=== PATIENT | male | born 1950 | race Two or more races ===

== ENCOUNTER 2021-03-13 18:38 | Emergency (ER) | payer SELFPAY | END 2021-03-13 18:51 | disposition left against medical advice (07) | LOC: ER 18:38 | DX: Z53.21 Procedure and treatment not carried out due to patient leaving prior to being seen by health care provider (principal) ==

== ENCOUNTER 2023-06-23 12:12 | Inpatient (IN) | payer MEDICAID ==
[~2023-06-23] VITALS: Ht 175.3 cm; Wt 54.4 kg
[2023-06-23] VITALS (30 sets, daily range): BP systolic 99–129; BP diastolic 67–87; PULSE 72–108; RESP 14–24; TEMP 97.9–98.3
[2023-06-23] MEDS ORDERED: VANCOMYCIN 1G PREMIX 200 ML IV ONE (12:30)
[2023-06-23] MEDS ORDERED: DILTIAZEM HCL 5MG/ML 5ML VIAL IV ONE (12:30)
[2023-06-23] MEDS ORDERED: PIPERACILLIN/TAZ 3.375G PREMIX 50 ML IV ONE (12:30)
[2023-06-23] MEDS ORDERED: LEVETIRACETAM 500MG PREMIX 100 ML IV ONE (12:30)
[2023-06-23] MEDS ORDERED: SODIUM CHLORIDE 0.9% 1000ML BAG (SEPSIS BOLUS) IV ONE (12:30)
[2023-06-23] MEDS ORDERED: LORAZEPAM 2MG/ML CPJ IV ONE (12:30)
[2023-06-23] MEDS ORDERED: LORAZEPAM 4MG/ML VIAL IV SCH (12:45)
[2023-06-23 12:49] LABS: BASOPHILS % 0.3 % (0.0-2.0); DIFFERENTIAL COMMENT 0; EOSINOPHILS % 0.9 % (0.0-5.0); HEMATOCRIT. 38.8 % (42.0-52.0); HEMOGLOBIN. 12.5 g/dL (14.0-18.0); LYMPHOCYTES % 17.9 % (20.0-50.0); MEAN CORPUSCULAR HGB CONC 32.1 g/dL (31.0-37.0); MEAN CORPUSCULAR VOLUME 99.4 fL (80.0-94.0); MEAN PLATELET VOLUME 7.2 fl (7.4-10.4); MONOCYTES % 9.3 % (2.0-8.0); NEUTROPHILS % 71.6 % (40.0-76.0); PLATELET 328 x1000/uL (130-400); RED CELL DISTRIBUTION WIDTH 14.5 % (11.6-14.6); WHITE BLOOD COUNT 17.7 x1000/uL (4.5-11.0)
[2023-06-23 12:57] LABS: AMMONIA 25 uMol/L (<32)
[2023-06-23 12:58] LABS: PARTIAL THROMBOPLASTIN TIME 23.1 sec (23.4-31.0); PROTHROMBIN TIME 11.2 sec (9.6-11.0)
[2023-06-23] MEDS ORDERED: MIDAZOLAM 100MG/100ML PMX 100 ML IV PRN (13:00)
[2023-06-23] MEDS ORDERED: FENTANYL 2500MCG/250ML PMX 250 ML IV ONE (13:00)
[2023-06-23 13:10] LABS: ALANINE AMINOTRANSFERASE 19 IU/L (10-49); ALBUMIN 3.9 g/dL (3.2-4.8); ASPARTATE AMINOTRANSFERASE 47 IU/L (<34); BILIRUBIN TOTAL 1.2 mg/dL (0.1-1.0); CALCIUM 11.8 mg/dL (8.7-10.4); CARBON DIOXIDE 31 mEq/L (21-32); CHLORIDE 97 mEq/L (98-107); CREATININE 0.9 mg/dL (0.6-1.3); GLUCOSE 164 mg/dL (70-105); POTASSIUM 4.4 mEq/L (3.5-5.1); PROTEIN TOTAL 7.2 g/dL (6.0-8.3); SODIUM 140 mEq/L (136-145); THYROID STIMULATING HORMONE 2.06 uIU/mL (0.55-4.78); UREA NITROGEN BLOOD 23 mg/dL (9-23)
[2023-06-23 13:12] LABS: LACTIC ACID 6.5 mmol/L (0.4-2.0)
[2023-06-23] MEDS ORDERED: FENTANYL CITRATE 2,500 MCG in SODIUM CHLORIDE 0.9% 200 ML IV PRN (13:15)
[2023-06-23 13:22] LABS: TROPONIN I HIGH SENSITIVITY 61 ng/L (3.0-53)
[2023-06-23] MEDS ORDERED: MIDAZOLAM HCL 100 MG in SODIUM CHLORIDE 0.9% 100 ML IV PRN (13:30)
[2023-06-23 14:20] LABS: CLARITY URINE CLEAR (CLEAR); COLOR URINE YELLOW (YELLOW); GLUCOSE URINE NEGATIVE (NEGATIVE); KETONES URINE TRACE (NEGATIVE); PH URINE 5.5 (4.5-8.0); PROTEIN URINE NEGATIVE (NEGATIVE); SPECIFIC GRAVITY URINE 1.025 (1.005-1.030)
[2023-06-23 14:21] LABS: LEUKOCYTE ESTERASE URINE NEGATIVE (NEGATIVE); NITRITE URINE NEGATIVE (NEGATIVE); OCCULT BLOOD URINE NEGATIVE (NEGATIVE); UROBILINOGEN URINE 0.2 E.U./dL (0.2-1.0)
[2023-06-23 14:37] LABS: BG BASE EXCESS 4.8 mmol/L (-2.0-2.0); BG CARBOXYHEMOGLOBIN 0.1 % (0.5-1.5); BG DEOXYHEMOGLOBIN 0.5 % (0.0-5.0); BG FRACTION INSPIRED OXYGEN 100; BG HCO3 ACT 30.2 mmol/L (22.0-26.0); BG METHEMOGLOBIN 0.3 % (0.0-1.5); BG OXYGEN SATURATION 99.5 % (92.0-98.5); BG OXYHEMOGLOBIN 99.1 % (94.0-97.0); BG PCO2 48.4 mmHg (35.0-45.0); BG PH 7.413 (7.350-7.450); BG PO2 406.2 mmHg (75.0-100.0); BG SAMPLE SITE RIGHT RADIAL; BG TOTAL HEMOGLOBIN 12.1 g/dL (12.0-18.0); BG TOTAL RESPIRATORY RATE 14 b/min; BG VENT MODE VENT - AC
[2023-06-23] MEDS ORDERED: MAGNESIUM 1 G PREMIX 100 ML IV ONE (15:00)
[2023-06-23] MEDS ORDERED: NOREPINEPHRINE 8MG/250ML PMX 250 ML IV ONE (15:00)
[2023-06-23] MEDS ORDERED: NOREPINEPHRINE 8MG/250ML PMX 250 ML IV NR (15:15)
[2023-06-23] MEDS ORDERED: DEXT 5%/0.45% NACL 1000ML 1,000 ML IV SCH (17:30)
[2023-06-23 17:35] LABS: TROPONIN I HIGH SENSITIVITY 64 ng/L (3.0-53)
[2023-06-23] MEDS ORDERED: LEVETIRACETAM 500 MG in SODIUM CHLORIDE 0.9% 100 ML IV ONE (17:45)
[2023-06-23] MEDS ORDERED: MAGNESIUM 2 G PREMIX 50 ML IV NR (18:00)
[2023-06-23] MEDS ORDERED: NOREPINEPHRINE 8MG/250ML PMX 250 ML IV PRN (18:00)
[2023-06-23] MEDS ORDERED: LEVETIRACETAM 500MG PREMIX 100 ML IV NR (18:00)
[2023-06-23] MEDS ORDERED: PIPERACILLIN/TAZ 3.375G PREMIX 50 ML IV SCH (18:15)
[2023-06-23] MEDS: METHYLPREDNISOLONE SOD SUCC 40MG/ML (ACT-O-VIAL) IV SCH (19:26)
[2023-06-23] MEDS: PANTOPRAZOLE SODIUM 40 MG/VIAL IV SCH (19:26)
[2023-06-23] MEDS ORDERED: DOCUSATE SODIUM 100MG CAPSULE PO PRN (20:30)
[2023-06-23] MEDS ORDERED: MAGNESIUM/ALUMINUM HYDROXIDE/SIMETHICONE 30ML UDC PO PRN (20:30)
[2023-06-23] MEDS ORDERED: CLONIDINE 0.1MG TABLET PO PRN (20:30)
[2023-06-23] MEDS ORDERED: ACETAMINOPHEN 325MG TABLET PO PRN ×2 (20:30)
[2023-06-23] MEDS: IPRATROPIUM/ALBUTEROL 0.5-3(2.5)MG/3ML NEB HHN SCH (20:35)
[2023-06-23] MEDS ORDERED: ENOXAPARIN 40MG/0.4ML SYR SUBCUT SCH (21:00)
[2023-06-23] MEDS: PROPOFOL 10MG/ML 100ML 100 ML IV PRN (21:03)
[2023-06-23] MEDS ORDERED: DEXTROSE 50% WATER 50ML SYRINGE IV PRN (21:45)
[2023-06-23] MEDS ORDERED: PIPERACILLIN/TAZOBACTAM 3.375 G in DEXTROSE 5% WATER 50 ML IV SCH (22:00)
[2023-06-23] MEDS: PIPERACILLIN/TAZOBACTAM 3.375 G in DEXTROSE 5% WATER 50 ML IV SCH (22:47)
[2023-06-23] MEDS: DEXT 5%/0.9% NACL 1,000 ML IV SCH (22:47)
[2023-06-24] VITALS (106 sets, daily range): BP systolic 81–139; BP diastolic 54–80; PULSE 67–112; RESP 17–28; TEMP 98–98.5
[2023-06-24] MEDS: METHYLPREDNISOLONE SOD SUCC 40MG/ML (ACT-O-VIAL) IV SCH ×4 (00:30→17:36)
[2023-06-24] MEDS: IPRATROPIUM/ALBUTEROL 0.5-3(2.5)MG/3ML NEB HHN SCH ×4 (01:35→20:40)
[2023-06-24 01:45] LABS: AMMONIA < 10 uMol/L (<32)
[2023-06-24 01:46] LABS: CREATINE KINASE MB FRACTION 1.7 ng/mL (0.5-3.6)
[2023-06-24 05:27] LABS: HEMATOCRIT. 32.2 % (42.0-52.0); HEMOGLOBIN. 10.5 g/dL (14.0-18.0); MEAN CORPUSCULAR HEMOGLOBIN 32.3 pg (28.0-32.0); MEAN CORPUSCULAR HGB CONC 32.6 g/dL (31.0-37.0); MEAN CORPUSCULAR VOLUME 99.2 fL (80.0-94.0); MEAN PLATELET VOLUME 7.4 fl (7.4-10.4); PLATELET 215 x1000/uL (130-400); RED BLOOD CELL COUNT 3.25 mill/uL (4.7-6.1); RED CELL DISTRIBUTION WIDTH 14.5 % (11.6-14.6); WHITE BLOOD COUNT 8.4 x1000/uL (4.5-11.0)
[2023-06-24 05:49] LABS: CREATINE KINASE MB FRACTION 1.4 ng/mL (0.5-3.6)
[2023-06-24 05:52] LABS: ALANINE AMINOTRANSFERASE 15 IU/L (10-49); ALBUMIN 3.3 g/dL (3.2-4.8); ASPARTATE AMINOTRANSFERASE 33 IU/L (<34); BILIRUBIN TOTAL 0.7 mg/dL (0.1-1.0); CALCIUM 10.5 mg/dL (8.7-10.4); CARBON DIOXIDE 28 mEq/L (21-32); CHLORIDE 102 mEq/L (98-107); CHOLESTEROL 201 mg/dL (<200); CREATININE 0.9 mg/dL (0.6-1.3); GLUCOSE 204 mg/dL (70-105); HDL CHOLESTEROL 43 mg/dL (>55); LDL CHOLESTEROL 140 mg/dL (5-100); POTASSIUM 3.8 mEq/L (3.5-5.1); PROTEIN TOTAL 6.1 g/dL (6.0-8.3); SODIUM 139 mEq/L (136-145); T4 FREE 1.12 ng/dL (0.89-1.76); TRIGLYCERIDE 160 mg/dL (0-150); UREA NITROGEN BLOOD 23 mg/dL (9-23)
[2023-06-24] MEDS ORDERED: LEVETIRACETAM 500MG PREMIX 100 ML IV SCH (06:00)
[2023-06-24] MEDS: BLOOD SUGAR DIAGNOSTIC STRIP TEST SCH ×4 (06:56→21:19)
[2023-06-24 06:59] LABS: DIFFERENTIAL COMMENT 1
[2023-06-24] MEDS: PIPERACILLIN/TAZOBACTAM 3.375 G in DEXTROSE 5% WATER 50 ML IV SCH (06:59)
[2023-06-24] MEDS: INSULIN LISPRO 100 UNITS/ML SUBCUT SCH ×4 (07:00→21:54)
[2023-06-24 07:54] LABS: BG BASE EXCESS 1.2 mmol/L (-2.0-2.0); BG CARBOXYHEMOGLOBIN 0.3 % (0.5-1.5); BG DEOXYHEMOGLOBIN 1.2 % (0.0-5.0); BG HCO3 ACT 25.6 mmol/L (22.0-26.0); BG METHEMOGLOBIN 0.2 % (0.0-1.5); BG OXYGEN SATURATION 98.8 % (92.0-98.5); BG OXYHEMOGLOBIN 98.3 % (94.0-97.0); BG PCO2 39.3 mmHg (35.0-45.0); BG PH 7.431 (7.350-7.450); BG SAMPLE SITE RIGHT RADIAL; BG TOTAL HEMOGLOBIN 10.3 g/dL (12.0-18.0); BG VENT MODE VENT - AC
[2023-06-24] MEDS ORDERED: VANCOMYCIN 750MG PMX (XELLIA) 150 ML IV SCH (09:00)
[2023-06-24] MEDS: LEVETIRACETAM 500MG PREMIX 100 ML IV SCH ×2 (09:21→21:06)
[2023-06-24] MEDS: PANTOPRAZOLE SODIUM 40 MG/VIAL IV SCH (09:21)
[2023-06-24] MEDS: ENOXAPARIN 60MG/0.6ML SYR SUBCUT SCH ×2 (09:22→21:06)
[2023-06-24] MEDS: DEXT 5%/0.9% NACL 1,000 ML IV SCH (09:23)
[2023-06-24] MEDS: VANCOMYCIN 500MG PREMIX 100 ML IV SCH ×2 (09:57→21:06)
[2023-06-24] MEDS ORDERED: NOREPINEPHRINE 8MG/250ML PMX 250 ML IV PRN (14:00)
[2023-06-24] MEDS: PIPERACILLIN/TAZOBACTAM 3.375G in DEXT 5% WATER 50ML IV SCH ×2 (14:19→21:54)
[2023-06-24 14:28] LABS: CREATINE KINASE MB FRACTION 0.9 ng/mL (0.5-3.6)
[2023-06-24 17:05] LABS: PLATELET ESTIMATE NORMAL
[2023-06-24] MEDS ORDERED: PROPOFOL 10MG/ML 100ML 100 ML IV PRN ×2 (18:15→21:15)
[2023-06-24] MEDS: PROPOFOL 10MG/ML 100ML 100 ML IV PRN (20:00)
[2023-06-25] VITALS (85 sets, daily range): BP systolic 86–115; BP diastolic 49–91; PULSE 74–105; RESP 12–28; TEMP 97.5–98.5
[2023-06-25] MEDS: METHYLPREDNISOLONE SOD SUCC 40MG/ML (ACT-O-VIAL) IV SCH ×4 (00:02→18:01)
[2023-06-25] MEDS: IPRATROPIUM/ALBUTEROL 0.5-3(2.5)MG/3ML NEB HHN SCH ×4 (01:44→20:21)
[2023-06-25] MEDS: DEXT 5%/0.9% NACL 1,000 ML IV SCH ×2 (02:53→21:40)
[2023-06-25 04:47] LABS: HEMATOCRIT 29.1 % (42.0-52.0); HEMOGLOBIN 9.5 g/dL (14.0-18.0); MEAN CORPUSCULAR HEMOGLOBIN 32.5 pg (28.0-32.0); MEAN CORPUSCULAR HGB CONC 32.7 g/dL (31.0-37.0); MEAN CORPUSCULAR VOLUME 99.5 fL (80.0-94.0); PLATELET 221 x1000/uL (130-400); RED BLOOD CELL COUNT 2.92 mill/uL (4.7-6.1); RED CELL DISTRIBUTION WIDTH 14.7 % (11.6-14.6); WHITE BLOOD COUNT 8.2 x1000/uL (4.5-11.0)
[2023-06-25 04:59] LABS: CALCIUM 10.1 mg/dL (8.7-10.4); CREATININE 1.2 mg/dL (0.6-1.3); POTASSIUM 3.1 mEq/L (3.5-5.1)
[2023-06-25] MEDS: BLOOD SUGAR DIAGNOSTIC STRIP TEST SCH ×4 (06:20→21:38)
[2023-06-25] MEDS: INSULIN LISPRO 100 UNITS/ML SUBCUT SCH ×4 (06:24→21:40)
[2023-06-25] MEDS: PIPERACILLIN/TAZOBACTAM 3.375G in DEXT 5% WATER 50ML IV SCH ×3 (06:24→21:40)
[2023-06-25] MEDS ORDERED: POTASSIUM CHLORIDE INJ 40 MEQ in DEXT 5% WATER 250 ML IV ONE (07:15)
[2023-06-25 07:54] LABS: BG BASE EXCESS 4.5 mmol/L (-2.0-2.0); BG CARBOXYHEMOGLOBIN 0.2 % (0.5-1.5); BG DEOXYHEMOGLOBIN 1.4 % (0.0-5.0); BG FRACTION INSPIRED OXYGEN 40; BG HCO3 ACT 28.8 mmol/L (22.0-26.0); BG METHEMOGLOBIN 0.2 % (0.0-1.5); BG OXYGEN SATURATION 98.6 % (92.0-98.5); BG OXYHEMOGLOBIN 98.2 % (94.0-97.0); BG PCO2 41.9 mmHg (35.0-45.0); BG PH 7.455 (7.350-7.450); BG PO2 160.6 mmHg (75.0-100.0); BG SAMPLE SITE RIGHT BRACHIAL; BG TOTAL HEMOGLOBIN 10.4 g/dL (12.0-18.0); BG VENT MODE VENT - AC
[2023-06-25] MEDS ORDERED: MAGNESIUM 2 G PREMIX 50 ML IV NR (09:00)
[2023-06-25] MEDS: LEVETIRACETAM 500MG PREMIX 100 ML IV SCH ×2 (11:14→21:05)
[2023-06-25] MEDS: PANTOPRAZOLE SODIUM 40 MG/VIAL IV SCH (11:14)
[2023-06-25] MEDS: KCL 20MEQ/100ML X 2 FOR TOTAL KCL 40MEQ/200ML IV SCH ×2 (11:14→14:52)
[2023-06-25] MEDS: ENOXAPARIN 60MG/0.6ML SYR SUBCUT SCH ×2 (11:16→21:06)
[2023-06-25 11:20] LABS: CREATINE KINASE 95 IU/L (46-171)
[2023-06-25] MEDS ORDERED: KCL 20MEQ/100ML PREMIX 100 ML IV NR (14:47)
[2023-06-25] MEDS ORDERED: VANCOMYCIN 750MG PREMIX 150 ML IV SCH (21:00)
[2023-06-26] VITALS (65 sets, daily range): BP systolic 82–119; BP diastolic 54–90; PULSE 73–113; RESP 2–36; TEMP 97–98.5; O2SAT 99
[2023-06-26] MEDS: METHYLPREDNISOLONE SOD SUCC 40MG/ML (ACT-O-VIAL) IV SCH ×3 (00:19→12:39)
[2023-06-26] MEDS: IPRATROPIUM/ALBUTEROL 0.5-3(2.5)MG/3ML NEB HHN SCH ×4 (02:21→20:03)
[2023-06-26 05:43] LABS: HEMATOCRIT 30.3 % (42.0-52.0); HEMOGLOBIN 9.9 g/dL (14.0-18.0); MEAN CORPUSCULAR HGB CONC 32.7 g/dL (31.0-37.0); MEAN CORPUSCULAR VOLUME 100.9 fL (80.0-94.0); PLATELET 228 x1000/uL (130-400); RED CELL DISTRIBUTION WIDTH 14.9 % (11.6-14.6); WHITE BLOOD COUNT 8.7 x1000/uL (4.5-11.0)
[2023-06-26 06:00] LABS: CALCIUM 10.2 mg/dL (8.7-10.4); CARBON DIOXIDE 29 mEq/L (21-32); CHLORIDE 106 mEq/L (98-107); CREATININE 1.1 mg/dL (0.6-1.3); GLUCOSE 174 mg/dL (70-105); POTASSIUM 3.3 mEq/L (3.5-5.1); SODIUM 144 mEq/L (136-145); UREA NITROGEN BLOOD 26 mg/dL (9-23)
[2023-06-26] MEDS: BLOOD SUGAR DIAGNOSTIC STRIP TEST SCH ×4 (06:09→21:53)
[2023-06-26] MEDS: PIPERACILLIN/TAZOBACTAM 3.375G in DEXT 5% WATER 50ML IV SCH ×3 (06:12→21:49)
[2023-06-26] MEDS: INSULIN LISPRO 100 UNITS/ML SUBCUT SCH ×3 (06:14→21:53)
[2023-06-26] MEDS ORDERED: POTASSIUM CHLORIDE 20MEQ/PACKET PO NR (08:00)
[2023-06-26] MEDS: PANTOPRAZOLE SODIUM 40 MG/VIAL IV SCH (08:24)
[2023-06-26] MEDS: LEVETIRACETAM 500MG PREMIX 100 ML IV SCH ×2 (08:25→21:48)
[2023-06-26] MEDS: ENOXAPARIN 60MG/0.6ML SYR SUBCUT SCH ×2 (08:26→21:48)
[2023-06-26 09:20] LABS: BG BASE EXCESS -0.3 mmol/L (-2.0-2.0); BG CARBOXYHEMOGLOBIN 0.2 % (0.5-1.5); BG DEOXYHEMOGLOBIN 2.4 % (0.0-5.0); BG HCO3 ACT 25.7 mmol/L (22.0-26.0); BG METHEMOGLOBIN 0.3 % (0.0-1.5); BG OXYGEN SATURATION 97.6 % (92.0-98.5); BG OXYHEMOGLOBIN 97.1 % (94.0-97.0); BG PH 7.347 (7.350-7.450); BG PO2 111.1 mmHg (75.0-100.0); BG SAMPLE SITE RIGHT BRACHIAL; BG TOTAL HEMOGLOBIN 12.1 g/dL (12.0-18.0); BG VENT MODE VENT - CPAP
[2023-06-26] MEDS: DEXT 5%/0.9% NACL 1,000 ML IV SCH (14:55)
[2023-06-27] VITALS (77 sets, daily range): BP systolic 95–184; BP diastolic 65–134; PULSE 72–159; RESP 14–40; TEMP 97.5–99.1; O2SAT 94–99
[2023-06-27] MEDS: METHYLPREDNISOLONE SOD SUCC 40MG/ML (ACT-O-VIAL) IV SCH ×5 (00:33→23:16)
[2023-06-27] MEDS: IPRATROPIUM/ALBUTEROL 0.5-3(2.5)MG/3ML NEB HHN SCH ×4 (04:24→20:22)
[2023-06-27 05:45] LABS: HEMATOCRIT. 29.8 % (42.0-52.0); HEMOGLOBIN. 9.7 g/dL (14.0-18.0); MEAN CORPUSCULAR HEMOGLOBIN 33.1 pg (28.0-32.0); MEAN CORPUSCULAR HGB CONC 32.6 g/dL (31.0-37.0); MEAN CORPUSCULAR VOLUME 101.5 fL (80.0-94.0); MEAN PLATELET VOLUME 7.5 fl (7.4-10.4); PLATELET 227 x1000/uL (130-400); RED BLOOD CELL COUNT 2.93 mill/uL (4.7-6.1); RED CELL DISTRIBUTION WIDTH 15.5 % (11.6-14.6); WHITE BLOOD COUNT 9.3 x1000/uL (4.5-11.0)
[2023-06-27] MEDS: BLOOD SUGAR DIAGNOSTIC STRIP TEST SCH ×4 (06:01→21:00)
[2023-06-27] MEDS: PIPERACILLIN/TAZOBACTAM 3.375G in DEXT 5% WATER 50ML IV SCH ×3 (06:03→23:16)
[2023-06-27 06:04] LABS: CARBON DIOXIDE 27 mEq/L (21-32); CHLORIDE 111 mEq/L (98-107); CREATININE 0.9 mg/dL (0.6-1.3); GLUCOSE 150 mg/dL (70-105); PHOSPHORUS 2.1 mg/dL (2.5-4.9); SODIUM 147 mEq/L (136-145); UREA NITROGEN BLOOD 32 mg/dL (9-23)
[2023-06-27 06:08] LABS: DIFFERENTIAL COMMENT 1
[2023-06-27] MEDS: INSULIN LISPRO 100 UNITS/ML SUBCUT SCH ×3 (07:00→18:27)
[2023-06-27] MEDS ORDERED: DEXTROSE 5% WATER 1,000 ML IV SCH (07:45)
[2023-06-27] MEDS: ENOXAPARIN 60MG/0.6ML SYR SUBCUT SCH ×2 (08:33→21:18)
[2023-06-27] MEDS: LEVETIRACETAM 500MG PREMIX 100 ML IV SCH ×2 (08:33→21:18)
[2023-06-27] MEDS: PANTOPRAZOLE SODIUM 40 MG/VIAL IV SCH (08:34)
[2023-06-27 08:39] LABS: BG BASE EXCESS -0.8 mmol/L (-2.0-2.0); BG CARBOXYHEMOGLOBIN 0.3 % (0.5-1.5); BG DEOXYHEMOGLOBIN 4.7 % (0.0-5.0); BG FRACTION INSPIRED OXYGEN 32; BG HCO3 ACT 24.2 mmol/L (22.0-26.0); BG METHEMOGLOBIN 0.2 % (0.0-1.5); BG OXYGEN SATURATION 95.3 % (92.0-98.5); BG OXYHEMOGLOBIN 94.8 % (94.0-97.0); BG PCO2 41.4 mmHg (35.0-45.0); BG PH 7.385 (7.350-7.450); BG PO2 80.7 mmHg (75.0-100.0); BG SAMPLE SITE RIGHT BRACHIAL; BG TOTAL HEMOGLOBIN 10.8 g/dL (12.0-18.0); BG VENT MODE NASAL CANNULA
[2023-06-27] MEDS: GUAIFENESIN 200MG/10ML SUGAR FREE UDC PO PRN ×2 (10:29→22:03)
[2023-06-27] MEDS ORDERED: DILTIAZEM HCL 5MG/ML 5ML VIAL IV NR (11:15)
[2023-06-27] MEDS ORDERED: DILTIAZEM HCL 30MG TABLET PO PRN (11:15)
[2023-06-27] MEDS ORDERED: IPRATROPIUM BROMIDE (0.02%) 0.5MG/2.5ML NEB HHN SCH (11:15)
[2023-06-27] MEDS ORDERED: IPRATROPIUM/ALBUTEROL 0.5-3(2.5)MG/3ML NEB HHN SCH (12:00)
[2023-06-27] MEDS ORDERED: DILTIAZEM HCL 5MG/ML 5ML VIAL IV PRN (14:15)
[2023-06-27] MEDS ORDERED: DILTIAZEM HCL 125 MG in DEXT 5% WATER 100 ML IV PRN (15:15)
[2023-06-27 15:22] LABS: BG BASE EXCESS -0.9 mmol/L (-2.0-2.0); BG CARBOXYHEMOGLOBIN 0.3 % (0.5-1.5); BG DEOXYHEMOGLOBIN 0.3 % (0.0-5.0); BG FRACTION INSPIRED OXYGEN 100; BG HCO3 ACT 25.3 mmol/L (22.0-26.0); BG METHEMOGLOBIN 0.1 % (0.0-1.5); BG OXYGEN SATURATION 99.7 % (92.0-98.5); BG OXYHEMOGLOBIN 99.3 % (94.0-97.0); BG PCO2 48.5 mmHg (35.0-45.0); BG PH 7.336 (7.350-7.450); BG PO2 233.7 mmHg (75.0-100.0); BG SAMPLE SITE RIGHT BRACHIAL; BG TOTAL HEMOGLOBIN 11.7 g/dL (12.0-18.0); BG VENT MODE MASK - NRB
[2023-06-27] MEDS: AMIODARONE HCL 200 MG TABLET PO SCH ×2 (15:43→21:18)
[2023-06-27] MEDS ORDERED: IPRATROPIUM/ALBUTEROL 0.5-3(2.5)MG/3ML NEB HHN PRN (17:15)
[2023-06-27] MEDS: AMIODARONE HCL 900 MG in DEXT 5% WATER 482 ML IV PRN (18:26)
[2023-06-27] MEDS: METOPROLOL TARTRATE 25MG TABLET PO SCH (21:19)
[2023-06-28] VITALS (82 sets, daily range): BP systolic 114–174; BP diastolic 52–120; PULSE 69–111; RESP 11–34; TEMP 97.6–98.4; O2SAT 96–99
[2023-06-28] MEDS: INSULIN LISPRO 100 UNITS/ML SUBCUT SCH ×5 (00:19→23:47)
[2023-06-28 01:47] LABS: BG BASE EXCESS -2.6 mmol/L (-2.0-2.0); BG CARBOXYHEMOGLOBIN 0.3 % (0.5-1.5); BG DEOXYHEMOGLOBIN 0.8 % (0.0-5.0); BG FRACTION INSPIRED OXYGEN 100; BG HCO3 ACT 24.8 mmol/L (22.0-26.0); BG METHEMOGLOBIN 0.3 % (0.0-1.5); BG OXYGEN SATURATION 99.2 % (92.0-98.5); BG OXYHEMOGLOBIN 98.6 % (94.0-97.0); BG PCO2 55.2 mmHg (35.0-45.0); BG PH 7.271 (7.350-7.450); BG SAMPLE SITE RIGHT BRACHIAL; BG TOTAL HEMOGLOBIN 11.5 g/dL (12.0-18.0); BG VENT MODE MASK - NRB
[2023-06-28] MEDS: IPRATROPIUM/ALBUTEROL 0.5-3(2.5)MG/3ML NEB HHN SCH ×4 (01:56→21:12)
[2023-06-28 04:44] LABS: HEMATOCRIT. 34.5 % (42.0-52.0); HEMOGLOBIN. 10.7 g/dL (14.0-18.0); MEAN CORPUSCULAR HEMOGLOBIN 32.1 pg (28.0-32.0); MEAN CORPUSCULAR HGB CONC 31.1 g/dL (31.0-37.0); MEAN CORPUSCULAR VOLUME 103.4 fL (80.0-94.0); RED BLOOD CELL COUNT 3.34 mill/uL (4.7-6.1); RED CELL DISTRIBUTION WIDTH 16.1 % (11.6-14.6); WHITE BLOOD COUNT 17.3 x1000/uL (4.5-11.0)
[2023-06-28 05:06] LABS: CARBON DIOXIDE 24 mEq/L (21-32); CHLORIDE 109 mEq/L (98-107); GLUCOSE 201 mg/dL (70-105); POTASSIUM 4.5 mEq/L (3.5-5.1); SODIUM 144 mEq/L (136-145); UREA NITROGEN BLOOD 32 mg/dL (9-23)
[2023-06-28] MEDS: METHYLPREDNISOLONE SOD SUCC 40MG/ML (ACT-O-VIAL) IV SCH ×4 (05:10→23:38)
[2023-06-28] MEDS: PIPERACILLIN/TAZOBACTAM 3.375G in DEXT 5% WATER 50ML IV SCH ×3 (05:10→21:36)
[2023-06-28 06:08] LABS: DIFFERENTIAL COMMENT 1
[2023-06-28 06:44] LABS: PLATELET ESTIMATE NORMAL
[2023-06-28] MEDS: BLOOD SUGAR DIAGNOSTIC STRIP TEST SCH ×4 (07:08→23:39)
[2023-06-28 08:21] LABS: PLATELET 261 x1000/uL (130-400)
[2023-06-28 08:22] LABS: MEAN PLATELET VOLUME 8.3 fl (7.4-10.4)
[2023-06-28 08:23] LABS: BG BASE EXCESS -1.5 mmol/L (-2.0-2.0); BG CARBOXYHEMOGLOBIN 0.1 % (0.5-1.5); BG HCO3 ACT 26.8 mmol/L (22.0-26.0); BG METHEMOGLOBIN 0.3 % (0.0-1.5); BG OXYHEMOGLOBIN 96.6 % (94.0-97.0); BG PCO2 62.9 mmHg (35.0-45.0); BG PH 7.247 (7.350-7.450); BG PO2 106.2 mmHg (75.0-100.0); BG SAMPLE SITE RIGHT BRACHIAL; BG TOTAL HEMOGLOBIN 11.7 g/dL (12.0-18.0); BG VENT MODE VAPOTHERM
[2023-06-28 08:28] LABS: NUCLEATED RED BLOOD CELLS 3 /100 WBC
[2023-06-28 08:29] LABS: PLATELET ESTIMATE NORMAL
[2023-06-28] MEDS: ENOXAPARIN 60MG/0.6ML SYR SUBCUT SCH ×3 (08:37→21:37)
[2023-06-28] MEDS: LEVETIRACETAM 500MG PREMIX 100 ML IV SCH ×3 (08:37→21:36)
[2023-06-28] MEDS: AMIODARONE HCL 200 MG TABLET PO SCH ×3 (08:38→21:36)
[2023-06-28] MEDS: METOPROLOL TARTRATE 25MG TABLET PO SCH ×3 (08:38→21:37)
[2023-06-28] MEDS: PANTOPRAZOLE SODIUM 40 MG/VIAL IV SCH (08:39)
[2023-06-28] MEDS: AMIODARONE HCL 900 MG in DEXT 5% WATER 482 ML IV PRN (17:02)
[2023-06-29] VITALS (12 sets, daily range): BP systolic 90–156; BP diastolic 54–88; PULSE 86–104; RESP 12–34; TEMP 97.3–98.8
[2023-06-29] MEDS: METHYLPREDNISOLONE SOD SUCC 40MG/ML (ACT-O-VIAL) IV SCH (04:59)
[2023-06-29] MEDS: BLOOD SUGAR DIAGNOSTIC STRIP TEST SCH (05:00)
[2023-06-29] MEDS: INSULIN LISPRO 100 UNITS/ML SUBCUT SCH (05:18)
[2023-06-29 07:26] LABS: HEMATOCRIT 33.1 % (42.0-52.0); HEMOGLOBIN 10.9 g/dL (14.0-18.0); MEAN CORPUSCULAR HEMOGLOBIN 33.2 pg (28.0-32.0); MEAN CORPUSCULAR VOLUME 100.6 fL (80.0-94.0); PLATELET 250 x1000/uL (130-400); RED BLOOD CELL COUNT 3.29 mill/uL (4.7-6.1); RED CELL DISTRIBUTION WIDTH 15.4 % (11.6-14.6); WHITE BLOOD COUNT 15.5 x1000/uL (4.5-11.0)
[2023-06-29] MEDS ORDERED: MORPHINE SULFATE 250 MG in DEXT 5% WATER 225 ML IV PRN (08:00)
[2023-06-29 08:15] LABS: ALANINE AMINOTRANSFERASE 737 IU/L (10-49); ALBUMIN 3.4 g/dL (3.2-4.8); ASPARTATE AMINOTRANSFERASE 1045 IU/L (<34); BILIRUBIN TOTAL 0.7 mg/dL (0.1-1.0); CALCIUM 9.5 mg/dL (8.7-10.4); CARBON DIOXIDE 25 mEq/L (21-32); CHLORIDE 108 mEq/L (98-107); CREATININE 1.1 mg/dL (0.6-1.3); GLUCOSE 123 mg/dL (70-105); POTASSIUM 4.6 mEq/L (3.5-5.1); PROTEIN TOTAL 6.2 g/dL (6.0-8.3); SODIUM 144 mEq/L (136-145); UREA NITROGEN BLOOD 54 mg/dL (9-23)
[2023-06-29] MEDS ORDERED: SCOPOLAMINE HYDROBROMIDE PATCH 72HR TD SCH (09:00)
[2023-06-29] MEDS: LEVETIRACETAM 500MG PREMIX 100 ML IV SCH ×2 (09:00→20:54)
[2023-06-29] MEDS ORDERED: LORAZEPAM 4MG/ML VIAL IV PRN (10:00)
== END 2023-06-30 01:30 | DRG 720 ==
LOC: ER 12:12 → MICUSO 17:03 → EDBEDREQ 17:08 → 5EST 06-28 22:34
PROVIDERS: ADMIT Internal Medicine; ATTEND Internal Medicine
PROC: 0BH17EZ Insertion of Endotracheal Airway into Trachea, Via Natural or Artificial Opening (ICD-10-PCS; 2023-06-23)
PROC: 5A1945Z Respiratory Ventilation, 24-96 Consecutive Hours (ICD-10-PCS; 2023-06-23)
PROC: B54BZZA Ultrasonography of Right Lower Extremity Veins, Guidance (ICD-10-PCS; 2023-06-23)
PROC: 06HY33Z Insertion of Infusion Device into Lower Vein, Percutaneous Approach (ICD-10-PCS; 2023-06-23)
PROC: 4A00X4Z Measurement of Central Nervous Electrical Activity, External Approach (ICD-10-PCS; principal; 2023-06-24)
DX: A41.9 Sepsis, unspecified organism (principal); N17.0 Acute kidney failure with tubular necrosis; J96.21 Acute and chronic respiratory failure with hypoxia; R65.21 Severe sepsis with septic shock; C79.51 Secondary malignant neoplasm of bone; G93.41 Metabolic encephalopathy; J18.9 Pneumonia, unspecified organism; D68.69 Other thrombophilia; E87.20 Acidosis, unspecified; L89.159 Pressure ulcer of sacral region, unspecified stage; S22.41XA Multiple fractures of ribs, right side, initial encounter for closed fracture; E11.65 Type 2 diabetes mellitus with hyperglycemia; G40.909 Epilepsy, unspecified, not intractable, without status epilepticus; E83.42 Hypomagnesemia; E87.5 Hyperkalemia; K21.9 Gastro-esophageal reflux disease without esophagitis; I50.9 Heart failure, unspecified; I48.0 Paroxysmal atrial fibrillation; I11.0 Hypertensive heart disease with heart failure; E80.6 Other disorders of bilirubin metabolism; J44.0 Chronic obstructive pulmonary disease with (acute) lower respiratory infection; D64.9 Anemia, unspecified; E83.52 Hypercalcemia; I05.0 Rheumatic mitral stenosis; I05.8 Other rheumatic mitral valve diseases; J84.10 Pulmonary fibrosis, unspecified; C79.31 Secondary malignant neoplasm of brain; E87.6 Hypokalemia; C34.91 Malignant neoplasm of unspecified part of right bronchus or lung; Z87.311 Personal history of (healed) other pathological fracture; Z79.899 Other long term (current) drug therapy; Z66 Do not resuscitate; Z79.4 Long term (current) use of insulin; I25.2 Old myocardial infarction
CPT/HCPCS: 31500; 36415; 36600; 71045; 76770; 80048; 80053; 80061; 80202; 81003; 82140; 82375; 82550; 82553; 82805; 82962; 83036; 83605; 83735; 83880; 84100; 84145; 84439; 84443; 84478; 84484; 85025; 85027; 85379; 86850; 86900; 87070; 87426; 92610; 93005; 93306; 93970; 94002; 94003; 94640; 99291; A6261; C9113; C9803; J0282; J1650; J1815; J1953; J2060; J2543; J2704; J2920; J3010; J3370; J3475; J3480; J3490; J7030; J7042; J7060